=== PATIENT | male | born 1965 | race Caucasian/White ===

== ENCOUNTER 2018-09-05 11:44 | Emergency (ER) | payer OTHER ==
--- NOTE | 2018-09-05 12:38 | ERPHSYRPT ---
- History of Present Illness Time Seen by Provider: 09/05/18 12:30 Source: patient, family Exam Limitations: no limitations Patient Subjective Stated Complaint: pt reports dropping a cast iron palomino on his right middle finger just TOP KNITTER. pt reports severe pain. Triage Nursing Assessment: pt is aox3, pupils perrl, resps easy and non labored , radial pulses strong and equal, skin pink warm and dry. dried blood noted to the tip of the right middle finger with slight swelling. no deformity noted. pt is able to move the finger and hand. Physician History: The patient is a 53-year-old right-handed male complaining that a large heavy bread palomino been staying in the of his right middle finger while at work this morning. The very tip of his finger is numb. He is able to move his finger without problems. Occurred: just prior to arrival Method of Injury: direct blow Quality: constant, stabbing Severity of Pain-Max: moderate Severity of Pain-Current: moderate Extremities Pain Location: 3rd finger: right Modifying Factors: Improves With: nothing Associated Symptoms: none Allergies/Adverse Reactions: No Known Drug Allergies Allergy (Unverified 09/05/18 11:57) Hx Tetanus, Diphtheria Vaccination/Date Given: Yes Hx Influenza Vaccination/Date Given: No Hx Pneumococcal Vaccination/Date Given: No Immunizations Up to Date: Yes - Review of Systems Constitutional: No Fever, No Chills Eyes: No Symptoms Ears, Nose, & Throat: No Symptoms Respiratory: No Cough, No Dyspnea Cardiac: No Chest Pain, No Edema, No Syncope Abdominal/Gastrointestinal: No Abdominal Pain, No Nausea, No Vomiting, No Diarrhea Genitourinary Symptoms: No Dysuria Musculoskeletal: Injury Skin: No Rash Neurological: No Dizziness, No Focal Weakness, No Sensory Changes Psychological: No Symptoms Endocrine: No Symptoms Hematologic/Lymphatic: No Symptoms Immunological/Allergic: No Symptoms All Other Systems: Reviewed and Negative - Past Medical History Pertinent Past Medical History: No - Past Surgical History Past Surgical History: Yes Musculoskeletal: Orthopedic Surgery Other Surgical History: r femur - Social History Smoking Status: Current every day smoker Drug Use: none Patient Lives Alone: No - Nursing Vital Signs Nursing Vital Signs: Initial Vital Signs Temperature 98.0 F 09/05/18 11:51 Pulse Rate 84 09/05/18 11:51 Respiratory Rate 20 09/05/18 11:51 Blood Pressure 173/105 09/05/18 11:51 O2 Sat by Pulse Oximetry 97 09/05/18 11:51 Pain Scale Pain Intensity 10 - Physical Exam General Appearance: alert Eyes, Ears, Nose, Throat Exam: moist mucous membranes Neck Exam: non-tender, supple Cardiovascular/Respiratory Exam: chest non-tender, normal breath sounds, regular rate/rhythm, no respiratory distress Abdominal Exam: non-tender, No guarding Back Exam: normal inspection, No vertebral tenderness Shoulder Exam: normal inspection Elbow/Forearm Exam: normal inspection Wrist Exam: normal inspection Hand Exam: soft tissue tenderness (tip of right middle finger) Neuro/Tendon Exam: normal sensation, normal motor functions Mental Status Exam: alert, oriented x 3, cooperative Skin Exam: normal color, warm, dry SpO2 Interpretation: normal SpO2: 97 Oxygen Delivery: Room Air - Radiology Exams Right Hand X-ray Interpretation: Reviewed by me, Teleradiologist Report (per Dr Pearl), Negative, No Fracture Ordered Tests: Active Orders 24 hr Category Date Time Status FINGER(S) Stat Exams 09/05/18 12:35 Completed Medication Summary Generic Name Dose Route Start Last Admin Trade Name Joesphq PRN Reason Stop Dose Admin Ketorolac Tromethamine 60 mg 09/05/18 12:52 Toradol 30 Mg Injection IM 09/05/18 12:53 STAT ONE - Progress Progress: unchanged, improved Counseled pt/family regarding: diagnosis, rad results - Departure Time of Disposition: 12:54 Departure Disposition: Home Clinical Impression: Contusion of right middle finger Condition: Stable Critical Care Time: No Referrals: DOCTOR,NO FAMILY [Primary Care Provider] - Additional Instructions: You have a contusion to the tip of your right middle finger. The x-ray did not find any broken bones. You are offered Toradol injection that you declined. Take Tylenol No. 3 one tablet every 4-6 hours as needed. Follow-up with your primary medical doctor as needed. Prescriptions: Codeine Phosphate/APAP #3 [Tylenol #3 Tablet] 1 tab PO Q4-6HPRN PRN #6 tablet PRN Reason: Pain
--- NOTE | 2018-09-05 12:50 | XRAY ---
Indication: Pain following injury. Comparison: None 3 views of the right 3rd finger obtained. No bony, articular, or soft tissue abnormalities.
[2018-09-05] MEDS ORDERED: TORAdol 30 mg Injection IM ONE (12:52)
[2018-09-05 13:02] VITALS: BP 176/98; PULSE 80; O2SAT 98
== END 2018-09-05 13:06 | disposition home or self-care (01) ==
LOC: ED 11:44
DX: S60.031A Contusion of right middle finger without damage to nail, initial encounter (principal); W22.8XXA Striking against or struck by other objects, initial encounter; Y93.9 Activity, unspecified; Y92.9 Unspecified place or not applicable; Y99.0 Civilian activity done for income or pay
CPT/HCPCS: 73140; 99283